=== PATIENT | male | born 1965 | race Two or more races ===

== ENCOUNTER 2017-12-10 17:40 | Inpatient (IN) | payer OTHER ==
[~2017-12-10] VITALS: Ht 165.1 cm; Wt 72.6 kg
== END 2017-12-13 19:00 | DRG 305 ==
LOC: ER 17:40 → ICU-2 12-11 09:45
PROC: B246ZZZ Ultrasonography of Right and Left Heart (ICD-10-PCS; principal; 2017-12-11)
DX: I16.9 Hypertensive crisis, unspecified (principal); I10 Essential (primary) hypertension